=== PATIENT | male | born 1945 | race Caucasian/White ===

== ENCOUNTER 2021-05-17 21:30 | Outpatient (CLI) | payer OTHER ==
[2021-05-18 15:37] LABS: H. PYLORIS ANTIGEN STL NEGATIVE (Negative)
== END 2021-05-17 23:59 | disposition home or self-care (01) ==
LOC: LAB 21:30
PROVIDERS: ATTEND Physician Assistant Medical
DX: R19.7 Diarrhea, unspecified (principal)
CPT/HCPCS: 81599; 87045; 87177; 87209; 87329; 87338; 87427; 87449; 87493

== ENCOUNTER 2022-05-02 18:58 | Emergency (ER) | payer OTHER ==
[2022-05-02] MEDS ORDERED: MORPHINE 2 MG/ML CARPUJECT IVP STA (20:04)
[2022-05-02] MEDS ORDERED: ONDANSETRON 4 MG/2 ML VIAL IVP STA (20:04)
--- NOTE | 2022-05-02 20:05 | ED Physician Documentation ---
PD HPI ABD PAIN - Stated complaint Stated Complaint: UPPER BACK PX,SPASMS - Chief complaint Chief Complaint: Abd Pain - History obtained from History obtained from: Patient - Additional information Additional information: This is a 77-year-old male who presents with right upper back spasms over the Last few weeks but worsening quite a bit over the last 1 to 2 days. They come in waves and radiate from the right scapula into the right upper quadrant of the abdomen. He has not had any nausea or vomiting but does think that they are worse after eating. He most recently ate a hamburger around 3 or 4 this afternoon and subsequently had increasing spasm in the pain from the right scapula radiating into the right upper quadrant. Has not had a fever or chills, no other chest pain or difficulty breathing, No cough or URI symptoms, no other abdominal pain, no diarrhea or constipation, no urinary symptoms. He Has been taking ibuprofen and Tylenol occasionally for this without any relief. No his tory of gallstones, only prior abdominal surgery is a periumbilical hernia. Review of Systems Ten Systems: 10 systems reviewed and negative (Except as noted in HPI) PD PAST MEDICAL HISTORY - Past Medical History Past Medical History: Yes - Present Medications Home Medications: Ambulatory Orders Medication Instructions Recorded Confirmed Cyclobenzaprine [Flexeril] 10 mg PO TID PRN #20 tablet 05/02/22 Oxycodone HCl/Acetaminophen 1 - 2 each PO Q6H PRN #14 tablet 05/02/22 [Percocet 5-325 mg Tablet] - Allergies Allergies/Adverse Reactions: Allergies Allergy/AdvReac Type Severity Reaction Status Date / Time No Known Drug Allergies Allergy Verified 05/02/22 19:08 PD ED PE NORMAL - Vitals Vital signs reviewed: Yes - General General: Alert and oriented X 3, No acute distress, Well developed/nourished - HEENT HEENT: Atraumatic, Moist mucous membranes, Pharynx benign - Neck Neck: Supple, no meningeal sign - Cardiac Cardiac: RRR, No murmur, No gallop, No rub - Respiratory Respiratory: No respiratory distress, Clear bilaterally - Abdomen Abdomen: Normal bowel sounds, Soft, Non tender, Non distended, No organomegaly - Back Back: No CVA TTP, No spinal TTP, Other (Reproducible muscle tenderness just to the right of the mid thoracic spine.) - Derm Derm: Normal color, No rash - Extremities Extremities: No deformity, No tenderness to palpate, Normal ROM s pain, No edema - 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, No motor deficit, No sensory deficit, Normal speech Eye Opening: Spontaneous Motor: Obeys Commands Verbal: Oriented GCS Score: 15 - Psych Psych: Normal mood, Normal affect Results - Vitals Vitals: Vital Signs - 24 hr 05/02/22 05/02/22 05/02/22 19:03 21:08 23:00 Temperature 36.4 C L Heart Rate 76 69 73 Respiratory 14 18 16 Rate Blood Pressure 162/69 H 161/85 H 168/73 H O2 Saturation 98 98 98 Oxygen O2 Source Room air - Labs Labs: Laboratory Tests 05/02/22 05/02/22 05/02/22 19:54 19:54 19:59 WBC 9.6 RBC 5.42 Hgb 14.9 Hct 45.9 MCV 84.7 MCH 27.5 MCHC 32.5 RDW 13.9 Plt Count 262 MPV 9.5 Neut # (Auto) 6.2 Lymph # (Auto) 2.2 Hughes # (Auto) 0.8 Eos # (Auto) 0.1 Baso # (Auto) 0.1 Absolute Nucleated RBC 0.00 Nucleated RBC % 0.0 Sodium 136 Potassium 3.7 Chloride 101 Carbon Dioxide 22 Anion Gap 13.0 BUN 16 Creatinine 0.9 Estimated GFR (MDRD) 82 L Glucose 104 H Calcium 9.4 Total Bilirubin 0.8 AST 27 ALT 27 Alkaline Phosphatase 73 Troponin I High Sens 3.9 Total Protein 8.2 Albumin 4.3 Globulin 3.9 Albumin/Globulin Ratio 1.1 Lipase 28 Urine Color Urine Clarity Urine pH Ur Specific Lawrence Urine Protein Urine Glucose (UA) Urine Ketones Urine Occult Blood Urine Nitrite Urine Bilirubin Urine Urobilinogen Ur Leukocyte Esterase Urine RBC Urine WBC Ur Squamous Epith Cells Urine Bacteria Ur Microscopic Review Urine Culture Comments 05/02/22 20:03 WBC RBC Hgb Hct MCV MCH MCHC RDW Plt Count MPV Neut # (Auto) Lymph # (Auto) Hughes # (Auto) Eos # (Auto) Baso # (Auto) Absolute Nucleated RBC Nucleated RBC % Sodium Potassium Chloride Carbon Dioxide Anion Gap BUN Creatinine Estimated GFR (MDRD) Glucose Calcium Total Bilirubin AST ALT Alkaline Phosphatase Troponin I High Sens Total Protein Albumin Globulin Albumin/Globulin Ratio Lipase Urine Color YELLOW Urine Clarity CLEAR Urine pH 6.0 Ur Specific Lawrence 1.025 Urine Protein NEGATIVE Urine Glucose (UA) NEGATIVE Urine Ketones NEGATIVE Urine Occult Blood SMALL H Urine Nitrite NEGATIVE Urine Bilirubin NEGATIVE Urine Urobilinogen 0.2 (NORMAL) Ur Leukocyte Esterase NEGATIVE Urine RBC 0-5 Urine WBC 0-3 Ur Squamous Epith Cells RARE Squamous Urine Bacteria Few Ur Microscopic Review INDICATED Urine Culture Comments NOT INDICATED PD MEDICAL DECISION MAKING - ED course Complexity details: reviewed results, re-evaluated patient, considered differential, d/w patient, d/w family ED course: Pt presented w/ right upper back pain radiating into the right upper quadrant. He was well appearing on physical exam w/ stable vs. Pain was reproducible with palpation of the right thoracic paravertebral muscles but given the significance of pain and its possible association w/ PO intake as well as radiation into the RUQ I did consider cholelithiasis or cholecystitis or another hepatobiliary etiology. Patient had no sx of pneumonia such as cough/dyspnea or PE and there was low concern for ACS given right sided and reproducible pain but a EKG and chest xray were done which were stable. Labs reassuring, trop negative. RUQ showed fatty liver but no gallstones or cholecystitis. Patient had some pain relief with meds initially but sharp waves of pain recurred after about an hour thus we did proceed w/ a CT scan to evaluate for possible atypical presentation of kidney stones and this was negative. Patient had improved pain relief w/ toradol, dilaudid, and a flexeril tablet. I suspect this is a muscle spasm or radiculopathy and advised supportive measures and continued pain management. Pt was discharged home w/ percocet and flexeril and cautioned on the potential side effects and dangers of this medication. He was advised to use warm compress and try light stretching/massage. If no improvement, he plans [facility], and advised to return to the ER if worsening. Departure - Departure Disposition: 01 Home, Self Care Clinical Impression: Upper back pain on right side, Fatty liver Condition: Good Instructions: ED Abdominal Pain Excl Appendx Male Prescriptions: Cyclobenzaprine [Flexeril] 10 mg PO TID PRN #20 tablet PRN Reason: Spasms Oxycodone HCl/Acetaminophen [Percocet 5-325 mg Tablet] 1 - 2 each PO Q6H PRN #14 tablet PRN Reason: pain Comments: You presented with right upper back pain radiating into the right upper abdomen. There is concern for possible gallstones however none were seen on imaging and your labs are all reassuring. We also evaluated her heart which was stable. Please adhere to a low-fat diet, and you may take ibuprofen or Tylenol for pain I have prescribed you oxycodone as well for breakthrough pain only. Please follow-up with your regular doctor within the next few days, return to the ER for new or worsening symptoms. Discharge Date/Time: 05/02/22 23:04
[2022-05-02 20:13] LABS: BILIRUBIN,URINE NEGATIVE (NEGATIVE); GLUCOSE, URINE (UA) NEGATIVE (NEGATIVE); KETONES,URINE (UA) NEGATIVE (NEGATIVE); LEUKOCYTE ESTERASE, URINE NEGATIVE (NEGATIVE); NITRITE,URINE NEGATIVE (NEGATIVE); OCCULT BLOOD,URINE SMALL (NEGATIVE); PROTEIN,URINE NEGATIVE (NEGATIVE); UROBILINOGEN,URINE 0.2 (NORMAL) E.U./dL (NORMAL)
[2022-05-02 20:14] LABS: CLARITY,URINE CLEAR (CLEAR)
[2022-05-02 20:16] LABS: BASOPHILS # (AUTO) 0.1 10^3/uL (0.0-0.1); BASOPHILS % (AUTO) 1.5 %; EOSINOPHILS # (AUTO) 0.1 10^3/uL (0.0-0.7); EOSINOPHILS % (AUTO) 1.1 %; HCT - HEMATOCRIT 45.9 % (42.0-52.0); HGB - HEMOGLOBIN 14.9 g/dL (14.0-18.0); LYMPHOCYTES # (AUTO) 2.2 10^3/uL (1.5-3.5); LYMPHOCYTES % (AUTO) 22.8 %; MEAN CORPUSCULAR HEMOGLOBIN 27.5 pg (27.0-31.0); MEAN CORPUSCULAR HGB CONC 32.5 g/dL (32.0-36.0); MEAN CORPUSCULAR VOLUME 84.7 fL (80.0-94.0); MEAN PLATELET VOLUME 9.5 fL (7.4-11.4); MONOCYTES # (AUTO) 0.8 10^3/uL (0.0-1.0); MONOCYTES % (AUTO) 8.7 %; NEUTROPHILS # (AUTO) 6.2 10^3/uL (1.5-6.6); NEUTROPHILS % (AUTO) 64.9 %; PLT - PLATELET COUNT 262 10^3/uL (130-450); RED BLOOD COUNT 5.42 10^6/uL (4.70-6.10); RED CELL DISTRIBUTION WIDTH 13.9 % (12.0-15.0); WHITE BLOOD COUNT 9.6 x10^3/uL (4.8-10.8)
[2022-05-02 20:23] LABS: BACTERIA,URINE Few /HPF (None Seen); RBC,URINE 0-5 /HPF (0-5); SQUAMOUS EPITHELIAL CELL,UR RARE Squamous (<= Few); WBC,URINE 0-3 /HPF (0-3)
[2022-05-02 20:30] LABS: ALBUMIN 4.3 g/dL (3.2-5.5); ALBUMIN/GLOBULIN RATIO 1.1 (1.0-2.2); BILIRUBIN,TOTAL 0.8 mg/dL (0.2-1.0); CALCIUM 9.4 mg/dL (8.5-10.3); CREATININE 0.9 mg/dL (0.6-1.2); POTASSIUM 3.7 mmol/L (3.5-5.0); TOTAL PROTEIN 8.2 g/dL (6.7-8.2)
[2022-05-02] MEDS ORDERED: KETOROLAC 30 MG/ML VIAL IVP STA (21:05)
[2022-05-02] MEDS ORDERED: CYCLOBENZAPRINE 10 MG TABLET PO STA (22:09)
[2022-05-02] MEDS ORDERED: oxyCODONE/ACET 5/325 Prepack 4 PO STA (22:09)
[2022-05-02] MEDS ORDERED: HYDROmorphone 0.5 MG/0.5 ML SYRINGE IVP STA (22:09)
--- NOTE | 2022-05-02 22:09 | Ultrasound Report ---
PROCEDURE: Abdomen Limited INDICATIONS: pain and nausea r/o cholecystitis TECHNIQUE: Real-time focused scanning was performed of the abdomen, with image documentation. COMPARISON: None. FINDINGS: The liver is mildly enlarged and demonstrates increased density with coarse sonographic echotexture c onsistent with fatty infiltration. The gallbladder is distended without gallstones, wall thickening, or pericholecystic fluid. No intra or definite extrahepatic biliary ductal dilatation. The visualized common bile duct is at th e upper limits of normal in caliber measuring up to 0.7 cm. The pancreas was not well seen sonographically. Right kidney measures 12.6 cm. No hydronephrosis. There is a right renal cyst measuring up to 2.7 cm. IMPRESSION: 1. No evidence of cholelithiasis or cholecystitis. 2. Increased hepatic echogenicity compatible with steatosis. Reviewed by: Cody Campos MD on 05/02/2022 10:07 PM PST Approved by: Cody Campos MD on 05/02/2022 10:07 PM PST Station ID: [id number]
--- NOTE | 2022-05-02 22:12 | XRAY Report ---
PROCEDURE: Chest 1 View X-Ray INDICATIONS: chest pain TECHNIQUE: One view of the chest was acquired. COMPARISON: None. FINDINGS: Surgical changes and devices: None. Lungs and pleura: There is a confluent right suprahilar opacity. No pleural effusions or pneumothora x. Mediastinum: Mediastinal contours appear normal. Heart size is normal. Bones and chest wall: No suspicious bony lesions. Overlying soft tissues appear unremarkable. IMPRESSION: 1. Confluent right subhilar opacities suggestive of consolidation and pneumonia. However, the differe ntial includes postobstructive atelectasis. Recommend correlation clinically and a short-term repeat study to demonstrate resolution or further evaluation with CT. Reviewed by: Cody Campos MD on 05/02/2022 10:11 PM PST Approved by: Cody Campos MD on 05/02/2022 10:11 PM [facility] Station ID: [id number]
[2022-05-02 23:04] VITALS: BP 168/73
--- NOTE | 2022-05-02 23:49 | CT Report ---
PROCEDURE: ABDOMEN/PELVIS WO INDICATIONS: right flank pain TECHNIQUE: Noncontrast 5 mm thick sections acquired from the diaphragms to the symphysis. 5 mm coronal and sagi ttal reformats were then performed. For radiation dose reduction, the following was used: automated exposure control, adjustment of mA and/or kV according to patient size. COMPARISON: Concurrent limited abdominal ultrasound. FINDINGS: Image quality: Excellent. Lung bases: There is mild dependant atelectasis. Heart: Heart is normal in size. URINARY: Right Kidney and Ureter: No stones or hydronephrosis. There is mild nonspecific right perinephric stranding. There is a simple renal cortical cyst measuring up to 2.8 cm. No hydroureter. Left Kidney and Ureter: No stones or hydronephrosis.There is mild nonspecific perinephric strandin g. No hydroureter. Bladder: Normal wall thickness. No stones. ABDOMEN: Liver: Noncontrast evaluation of the liver demonstrates no discrete mass. Gallbladder: Within normal limits without calcified gallstones. Biliary ducts: No biliary ductal dilatation. Pancreas: Unremarkable. Spleen: Normal in size. Adrenal Glands: No adrenal nodules. Stomach and Bowel: Stomach and small bowel loops are normal in caliber and wall thickness. The appen león is normal in appearance. There is colonic diverticulosis without acute diverticular colitis. Mild segmental wall thickening within the sigmoid colon is suggestive of a mild colitis. Peritoneum: No abnormal intraperitoneal fluid. No free air. Ventral Wall: No hernia. Abdominal Nodes: No retroperitoneal or mesenteric adenopathy by size criteria. Vessels: Aorta and inferior vena cava are normal in size. PELVIS: Pelvic Organs: Unremarkable. Pelvic Nodes: No enlarged lymph nodes. Miscellaneous: No inguinal hernias identified. Bones: Visualized osseous structures demonstrate no suspicious focal lesions. IMPRESSION: 1. No nephrolithiasis or obstructive uropathy. 2. No evidence of appendicitis. 3. Colonic diverticulosis without acute diverticulitis. 4. Mild segmental wall thickening in the sigmoid colon may reflect a mild colitis. Reviewed by: Cody Campos MD on 05/02/2022 11:48 PM PST Approved by: Cody Campos MD on 05/02/2022 11:48 PM PST Station ID: [id number]
== END 2022-05-02 23:04 | disposition home or self-care (01) ==
LOC: ED 18:58
DX: M54.6 Pain in thoracic spine (principal); K76.0 Fatty (change of) liver, not elsewhere classified
CPT/HCPCS: 36415; 71045; 74176; 76705; 80053; 81001; 83690; 84484; 85025; 93005; 96374; 96375; 99282; 99285; A9270; J1170; 81003; 87086

== ENCOUNTER 2022-11-10 08:00 | Outpatient (CLI) | payer OTHER ==
--- NOTE | 2022-11-10 20:30 | XRAY Report ---
PROCEDURE: Toe(s) LT INDICATIONS: PAIN IN LEFT 4TH TOE TECHNIQUE: Frontal view of the foot, 3 views of the fourth toe COMPARISON: None FINDINGS: Bones: No fractures or dislocations. No suspicious bony lesions. Polyarticular degenerative change s the foot, for example at the first MTP joint and scattered IP joints. Articular lucencies also demo nstrated indeterminate for subchondral cystic change or erosions. Possible marginal erosion first MTP joint. Soft tissues: No suspicious soft tissue densities. IMPRESSION: No acute osseous abnormality. If symptoms persist, follow-up radiographs and/or CT or MRI may be help ful for further evaluation. Reviewed by: Linwood Erickson MD on 11/10/2022 8:28 PM PDT Approved by: Linwood Erickson MD on 11/10/2022 8:28 PM PDT Station ID: [id number]
== END 2022-11-10 23:59 | disposition home or self-care (01) ==
LOC: DI.S 08:00
PROVIDERS: ATTEND Physician Assistant
DX: M79.675 Pain in left toe(s) (principal)
CPT/HCPCS: 73660

== ENCOUNTER 2023-06-18 08:00 | Outpatient (CLI) | payer OTHER ==
[2023-06-18 16:43] LABS: BILIRUBIN,URINE NEGATIVE (NEGATIVE); GLUCOSE, URINE (UA) NEGATIVE (NEGATIVE); KETONES,URINE (UA) NEGATIVE (NEGATIVE); LEUKOCYTE ESTERASE, URINE TRACE (NEGATIVE); NITRITE,URINE NEGATIVE (NEGATIVE); OCCULT BLOOD,URINE LARGE (NEGATIVE); PH,URINE 5.5 PH (5.0-7.5); PROTEIN,URINE NEGATIVE (NEGATIVE); UROBILINOGEN,URINE 0.2 (NORMAL) E.U./dL (NORMAL)
[2023-06-18 16:53] LABS: BACTERIA,URINE Moderate /HPF (None Seen); CLARITY,URINE HAZY (CLEAR); RBC,URINE TNTC /HPF (0-5); SQUAMOUS EPITHELIAL CELL,UR NONE SEEN (<= Few); WBC,URINE >25 /HPF (0-3)
== END 2023-06-18 23:59 | disposition home or self-care (01) ==
LOC: LAB 08:00
PROVIDERS: ATTEND Registered Nurse
DX: R31.9 Hematuria, unspecified (principal)
CPT/HCPCS: 81001; 81003; 87077; 87086; 87181

== ENCOUNTER 2023-07-05 12:21 | Outpatient (CLI) | payer OTHER | END 2023-07-05 23:59 | disposition critical access hospital (66) | LOC: EMS 12:21 | DX: R11.2 Nausea with vomiting, unspecified (principal); R19.7 Diarrhea, unspecified | CPT/HCPCS: A0425; A0429 ==